=== PATIENT | female | born 1985 | race Caucasian/White ===

== ENCOUNTER 2017-07-29 09:06 | Inpatient (IN) ==
[2017-07-29] MEDS ORDERED: METHYLERGONOVINE 0.2 MG/ML INJECTION IM PRN (09:39)
[2017-07-29] MEDS ORDERED: CALCIUM CARBONATE Chewable 500mg TABLET PO PRN (09:39)
[2017-07-29] MEDS ORDERED: CARBOPROST 250 MCG/ML INJECTION IM PRN (09:39)
[2017-07-29] MEDS ORDERED: MAG-AL + SIM ORAL LIQUID 30ml PO PRN (09:39)
[2017-07-29] MEDS ORDERED: LIDOCAINE 1% (10mg/ml) 2mL INJ PF SDV ID PRN (09:39)
[2017-07-29] MEDS ORDERED: ACETAMINOPHEN 500 MG TABLET PO PRN (09:39)
--- OUTSIDE RECORDS SUMMARY | 2017-07-29 10:00 | External Medical Summary | Continuity of Care Document ---
:1985 Author Organization [facility] Address [address] [place], [place] [address] Phone Support Name Relationship Address Phone Sg Alva spouse [address] [phone] [place] [address] Allergies, Adverse Reactions, Alerts Substance Reaction Severity Status No Known Drug Allergies Unknown Active Medications Medication Instructions Dosage Effective Dates (start - Status Comments stop) ORAL TABLET - Active Problems Condition Effective Dates (start - stop) Clinical Status Follow-Up, Routine - Encounter for suprvsn of normal - , second trimester 23 weeks gestation of - 19 weeks gestation of - Encounter for suprvsn of normal - , second trimester Matern care for oth or susp poor fetl - grth, 2nd tri, unsp Encounter for suprvsn of normal - , second trimester 14 weeks gestation of - Matern care for oth or susp poor fetl - grth, 2nd tri, unsp 19 weeks gestation of - Small for Gestational Age Routine Care, Multigravida 40 weeks gestation of - Pap Smear Screening, Cervix - Encounter for suprvsn of normal - , first trimester 10 weeks gestation of - Active Procedures Procedure Date OB Visit No Charge Results Test Name Date and Time Measure Units Reference Range Abnormal Flag Comments Unknown Advance Directives Directive Yes / No Effective Date File Name Unknown Encounters Encounter Practice Location Reason(s) Diagnoses Date Provider Care Team Description For Visit Members Delonte Sanchez Encounter for Cristian-0 Urena Referring In Womens suprvsn of normal 6-201 Nedra. Provider: Emily KEMP, , second 7 700 Nedra Urena PO [address] [email or web address] weeks Medical , 700 1522, gestation of [facility], , [facility] Dr ZHONG, 120, [place] 120, [id number], Daniel Sanchez, [place], [place], tel:[phone]. , [place]. tel: tel: [phone] Delonte Sanchez 19 weeks David-1 Urena Referring In Womens gestation of 2-201 Nedra. Provider: Emily KEMP, pregnancyEncounte 7 700 Nedra Urena PO Box r for suprvsn of [facility], 700 1522, normal , [facility], second trimester , [facility] Dr ZHONG, 120, [place] 120, , Daniel Sanchez, [place], [place], tel:[phone]. , [place]. tel: tel: [phone] Delonte Sanchez Matern care for David- Urena Referring In Womens Ultrasound oth or susp poor 2-201 Nedra. Provider: arely Bain, 2nd 7 700 Nedra Urena PO Box tri, [email or web address] weeks Medical , 700 1522, gestation of [facility], , [facility] Dr ZHONG, 120, [place] 120, , Daniel [place], [place], tel: [phone]. , [place]. tel: tel: [phone] Delonte Sanchez Matern care for January-0 Urena Referring In Womens oth or susp poor 2-201 Nedra. Provider: arely Bain, 2nd 7 700 Nedra Urena PO Box tri, Medical , 700 1522, unspEncounter for [facility], suprvsn of normal , [facility] Dr ZHONG, , second 120, [place] 120, [id number], [email or web address] weeks Daniel [place], gestation of [place] ZHONG, tel:[phone]. , [place]. tel: tel: [phone] Delonte Sanchez Pap Smear Apr-0 Urena Referring In Womens Screening, 4- Nedra. Provider: Emily KEMP CervixEncneishaer 7 700 Nedra Urena PO Box for suprvsn of Medical K, 700 1522, normal , [facility] Vincent, first [email or web address] , [facility] Dr ZHONG, weeks gestation 120, T[place] 120, , of Daniel Sanchez, [place], [place], tel: [phone]. , [place]. tel: tel: [phone] Delonte Sanchez Jul- Urena Referring In Womens Follow-Up, 3- Nedra. Provider: Emily KEMP, Routine 5 700 Nedra Urena PO Box Medical K, 700 1522, [place] [address], [facility] Dr ZHONG, 120, [place] 120, , Daniel [place], [place], tel: [phone]. , [place]. tel: tel: [phone] Delonte Sanchez Small for Oct-0 Urena In Womens Gestational 1-201 Nedra. Emily [facility]P, [facility], 5 700 PO Box [email or web address] Medical 1522, weeks gestation [facility], of Tanner Manzo, 120, [id number], [place], [place] ZHONG, tel: [phone] , [place]. tel: [phone] Delonte Sanchez Apr- Urena Referring In Womens 4-201 Nedra. Provider: Emily KEMP, 5 700 Nedra Urena PO Box Medical K, 700 1522, [place] [address], [facility] Dr ZHONG, 120, [place] 120, [id number], [place], [place] ZHONG, tel: [phone]. , [place]. tel: tel: [phone] Delonte Sanchez Fe- Urena In Womens 8-201 Nedra. Emily KEMP, 5 700 PO Box Medical 1522, [place] [address] Vincent, [place], 120, [id number], [place], [place], tel:[phone] , [place]. tel: [phone] Family History Family Member Diagnosis Age At Onset No family history of Uterine Cancer No family history of Pulmonary Embolism No family history of Ovarian Cancer No family history of Venous Thrombosis No family history of Colon Cancer No family history of Breast Cancer Mother Melanoma Immunizations Vaccine Date Status Comments Tdap completed Source: New Immunization Record Payers Payer name Insurance type Covered constitution party ID Authorization(s) [facility] - [id number] Medicaid [facility] [id number] [facility] [id number] Social History Type Description Quantity Date Captured Alcohol Use Details No Caffeine Use Details Unknown Tobacco Use Status Unknown Smoking Status Never smoker Vital Signs Date / Height Weight BMI Pulse Blood Temperature Respiratory Body Head BMI Time: Rate Pressure Rate Surface Circumference percentile Area 127.90 21.2 / lbs 8 mm[Hg] 10:24 kg/m AM eter (2) 5 10:18 kg/m AM eter (2) Chief Complaint And Reason For Visit Unknown Chief Complaint And Reason For Visit Reason For Referral Reason For Referral Unknown Plan Of Care Date Type Action Status Appointment Aliyah Alva BOOKED Future Order: Radiology Order Complete OB Ultrasound > 14 Ordered Weeks ([id number]) Date Type Problem Goal Intervention Status Start Date Unknown. History Of Present Illness Encounter Date Complaint History Of Present Illness This patient has no known history of present illness Functional Status Encounter Date Functional Assessment Cognitive Assessment Unknown Medications Administered Medication Instructions Dosage Effective Dates (start - stop) Status Comments Drug Treatment Unknown Instructions Date Instruction Additional Information HIV and other routine tests risk factors identified by history anticipated course of care nutrition and weight gain counseling, special diet toxoplasmosis precautions (cats / raw meat) exercise indications for ultrasound environmental / work hazards travel tobacco (ask, advise, assess, assist and arrange) alcohol illicit / recreational drugs use of any medications (including supplements, vitamins, herbs, OTC drugs) smoking counseling domestic violence seat belt use genetic testing new ob handbook Zika virus assessment & precautions
--- OUTSIDE RECORDS SUMMARY | 2017-07-29 10:00 | External Medical Summary | Summary of Care ---
:1985 Author Name Mary Jane Palm M.D. Address [address], [place] [address] Care Team Providers Name Role Phone Mary Jane Palm M.D. Unavailable Unavailable Outside, Physician Primary Care Provider Unavailable Unavailable Unavailable Unavailable Functional Status Functional Status Health Issues Name Dates Details Functional status health issues are not documented Status: Cognitive Status Health Issues Name Dates Details Cognitive status health issues are not documented Status: Problems Name Dates Details Sinusitis (473.9, J32.9) Status: Active Medications Name Dates Details Amoxicillin 500 MG Oral Capsule TAKE 1 CAPSULE 3 TIMES DAILY UNTIL GONE. Quantity: 30 Refills: 0 Shoaib Palm M.D. Started 26-Dec-2014 Ended 05-Jan-2015 ActiveFluticasone Propionate 50 MCG/ACT Nasal Suspension USE 1 SPRAY IN EACH NOSTRIL TWICE DAILY. Quantity: 1 Refills: 0 Shoaib Palm M.D. Started 26-Dec-2014 Ended 05-Jan-2015 Iplfeq31 GM Bottle Allergies and Adverse Reactions Name Dates Details No Known Drug Allergies Status: Active Procedures Procedure Dates Details Procedures not documented Immunization Name Dates Details Immunizations not documented Social History Smoking StatusUnknown if ever smoked Vital Signs Date Test Result Details No Known Vitals to report Results Date Description Value Details Results not documented Plan of Care Planned Observations Name Dates Details Planned Goals not documented Goal Instructions Instructions not documented Encounters Appointment; Shoaib Palm On 26-Dec-2014 Encounter Diagnosis: Problem not documented 10:00
--- OUTSIDE RECORDS SUMMARY | 2017-07-29 10:00 | External Medical Summary | Continuity of Care Document ---
:1987 Author Organization [email or web address] Address [address] [place], [place] [address] Phone Support Name Relationship Address Phone Sg Alva spouse [address] [phone] [place] [address] Allergies, Adverse Reactions, Alerts Substance Reaction Severity Status No Known Drug Allergies Unknown Active Medications Medication Instructions Dosage Effective Dates (start - Status Comments stop) ORAL TABLET - Active Problems Condition Effective Dates (start - stop) Clinical Status Follow-Up, Routine - Encounter for suprvsn of normal - , third trimester 30 weeks gestation of - Encounter for suprvsn of normal - , second trimester 19 weeks gestation of - Matern care for oth or susp poor fetl - grth, 2nd tri, unsp 14 weeks gestation of - Encounter for suprvsn of normal - , second trimester Matern care for oth or susp poor fetl - grth, 2nd tri, unsp 19 weeks gestation of - Small for Gestational Age Routine Care, Multigravida 40 weeks gestation of - Pap Smear Screening, Cervix - Encounter for suprvsn of normal - , first trimester 10 weeks gestation of - Encounter for suprvsn of normal - , second trimester 23 weeks gestation of - Encounter for suprvsn of normal - , second trimester 27 weeks gestation of - Encounter for suprvsn of normal - , third trimester 32 weeks gestation of - Active Procedures Procedure Date OB Visit No Charge Results Test Name Date and Time Measure Units Reference Range Abnormal Flag Comments Unknown Advance Directives Directive Yes / No Effective Date File Name Unknown Encounters Encounter Practice Location Reason(s) Diagnoses Date Provider Care Team Description For Visit Members Delonte Sanchez Encounter for May- Urena Referring In Womens suprvsn of normal 8-201 Nedra. Provider: Emily KEMP, , third 7 700 Nedra Urena PO Box [email or web address] weeks Medical , 700 1522, gestation of [facility], , [facility] Dr ZHONG, 120, [place] 120, [id number], Daniel [place], [place] ZHONG, tel: [phone]. , [place]. tel: tel: [phone] Delonte Sanchez Encounter for Urena Referring In Womens suprvsn of normal 4-201 Nedra. Provider: Emily KEMP, , third 7 700 Nedra Urena PO Box [id number] weeks Medical , 700 1522, gestation of [facility], , [facility] Dr ZHONG, 120, [place] 120, [id number], Daniel Sanchez, [place] ZHONG, tel: [phone]. , [place]. tel: tel: [phone] Delonte Sanchez Encounter for Apr- Urena Referring In Womens suprvsn of normal 3-201 Nedra. Provider: Emily KEMP, , second 7 700 Nedra Urena PO Box [email or web address] weeks Medical , 700 1522, gestation of [facility], , [facility] Dr ZHONG, 120, [place] 120, [id number], Daniel [place], [place] ZHONG, tel: [phone]. , [place]. tel: tel: [phone] Delonte Sanchez Encounter for Mar- Urena Referring In Womens suprvsn of normal 6-201 Nedra. Provider: Emily KEMP, , second 7 700 Nedra Urena PO Box [email or web address] weeks Medical , 700 1522, gestation of [facility], , [facility] Dr ZHONG, 120, [place] 120, , Daniel Sanchez, [place] ZHONG, tel: [phone]. , [place]. tel: tel: [phone] Delonte Sanchez Encounter for David-1 Urena Referring In Womens suprvsn of normal 2-201 Nedra. Provider: Health PA, , second 7 700 Nedra Urena PO Box [email or web address] weeks Medical , 700 1522, gestation of [facility], , [facility] Dr ZHONG, 120, [place] 120, , Daniel Sanchez, [place] ZHONG, tel:[phone]. , [place]. tel: tel: [phone] Delonte Sanchez Matern care for David-1 Urena Referring In Womens Ultrasound oth or susp poor 2-201 Nedra. Provider: Health VIRIDIANA, fetl grth, 2nd 7 700 Nedra Urena PO Box tri, [email or web address] weeks Medical , 700 1522, gestation of [facility], , [facility] Dr ZHONG, 120, [place] 120, [id number], Daniel Sanchez, [place] ZHONG, tel: [phone]. , [place]. tel: tel: [phone] Delonte Sanchez Matern care for May-0 Urena Referring In Womens oth or susp poor 2-201 Nedra. Provider: Health PA, fetl grth, 2nd 7 700 Nedra Urena PO Box tri, [email or web address] weeks Medical , 700 1522, gestation of [facility], pregnancyEncbinh Manzo, [facility] Dr ZHONG, r for suprvsn of 120, [place] 120, [id number], normal , Daniel Sanchez, second trimester [place] ZHONG, tel: [phone]. , [place]. tel: tel: [phone] Delonte Sanchez Pap Smear Apr-0 Urena Referring In Womens Screening, 4-201 Nedra. Provider: Emily KEMP, CervixEncounter 7 700 Nedra Urena PO Box for suprvsn of Medical K, 700 1522, normal , [place] Elizabeth Kaur, first [email or web address] Dr, [facility] Dr ZHONG, weeks gestation 120, [place] 120, [id number], of [place], [place], tel: [phone]. , [place]. tel: tel: [phone] Delonte Sanchez Nov- Urena Referring In Womens Follow-Up, 3- Nedra. Provider: Emily KEMP, Routine 5 700 Nedra Urena PO Box Medical K, 700 1522, [place] [address], [facility] Dr ZHONG, 120, [place] 120, , [place], [place], tel:[phone]. , [place]. tel: tel: [phone] Delonte Sanchez Small for Oct-0 Urena In Womens Gestational 1-201 Nedra. Emily [facility]EMP, [facility], 5 700 PO Box [id number] Medical 1522, [facility], of [place] Manzo, 120, , [place], [place], tel: [phone] , [place]. tel: [phone] Delonte Sanchez Apr- Urena Referring In Womens 4-201 Nedra. Provider: Emily KEMP, 5 700 Nedra Urena PO Box Medical K, 700 1522, [place] [address], [facility] Dr ZHONG, 120, [place] 120, [id number], Daniel Sanchez, [place], [place], tel: [phone]. , [place]. tel: tel: [phone] Delonte Sanchez Oct- Urena In Womens 8-201 Nedra. Emily KEMP, 5 700 PO Box Medical 1522, [place] Dr Vincent, [place], 120, [id number], [place], [place], tel: [phone] , [place]. tel: [phone] Family History Family Member Diagnosis Age At Onset No family history of Uterine Cancer No family history of Pulmonary Embolism No family history of Ovarian Cancer No family history of Venous Thrombosis No family history of Colon Cancer No family history of Breast Cancer Mother Melanoma Immunizations Vaccine Date Status Comments Tdap completed Source: New Immunization Record Payers Payer name Insurance type Covered republican ID Authorization(s) [facility] - [id number] Medicaid [facility] [id number] [facility] [id number] Social History Type Description Quantity Date Captured Alcohol Use Details No Caffeine Use Details Unknown Tobacco Use Status Unknown Smoking Status Never smoker Vital Signs Date / Height Weight BMI Pulse Blood Temperature Respiratory Body Head BMI Time: Rate Pressure Rate Surface Circumference percentile Area 138.00 22.9 lbs 6 mm[Hg] 9:09 kg/m AM eter (2) Chief Complaint And Reason For Visit Unknown Chief Complaint And Reason For Visit Reason For Referral Reason For Referral Unknown Plan Of Care Date Type Action Status Appointment Aliyah Alva BOOKED Future Order: Radiology Order Complete OB Ultrasound > 14 Ordered Weeks ([id number]) Date Type Problem Goal Intervention Status Start Date Unknown. History Of Present Illness Encounter Date Complaint History Of Present Illness This patient has no known history of present illness Functional Status Encounter Date Functional Assessment Cognitive Assessment Unknown Medications Administered Medication Instructions Dosage Effective Dates (start - stop) Status Comments Drug Treatment Unknown Instructions Date Instruction Additional Information gestational glucose lab screening HIV and other routine tests risk factors [...]
--- OUTSIDE RECORDS SUMMARY | 2017-07-29 10:01 | External Medical Summary | Continuity of Care Document ---
:1985 Author Organization [facility] Address [address] [place], [place] [address] Phone Support Name Relationship Address Phone Sg Alva spouse [email or web address] [phone] [place] [address] Allergies, Adverse Reactions, Alerts Substance Reaction Severity Status No Known Drug Allergies Unknown Active Medications Medication Instructions Dosage Effective Dates (start - Status Comments stop) ORAL TABLET - Active Problems Condition Effective Dates (start - stop) Clinical Status Follow-Up, Routine - Encounter for suprvsn of normal - , third trimester 32 weeks gestation of - Encounter for suprvsn [...] suprvsn of normal - , third trimester 34 weeks gestation of - Active Procedures Procedure Date OB Visit No Charge Results Test Name Date and Time Measure Units Reference Range Abnormal Flag Comments Unknown Advance Directives Directive Yes / No Effective Date File Name Unknown Encounters Encounter Practice Location Reason(s) Diagnoses Date Provider Care Team Description For Visit Members Delonte Sanchez Encounter for May- Urena Referring In Womens suprvsn of 2-201 Nedra. Provider: Health VIRIDIANA, normal 7 700 Nedra Urena PO Box , third Medical K, 700 1522, [email or web address] [facility], weeks gestation , [facility] Dr ZHONG, of 120, [place] 120, [id number], Daniel [place], [place] ZHONG, tel:[phone]. , [place]. tel: tel: [phone] Delonte Sanchez Encounter for Sep-0 Urena Referring In Womens suprvsn of 8-201 Nedra. Provider: Health VIRIDIANA, normal 7 700 Nedra Urena PO Box , third Medical K, 700 1522, [email or web address] [facility] Vincent, weeks gestation , [facility] Dr ZHONG, of 120, [place] 120, [id number], Daniel [place], [place] ZHONG, tel:[phone]. , [place]. tel: tel: [phone] Delonte Sanchez Encounter for Apr- Urena Referring In Womens suprvsn of 4-201 Nedra. Provider: Health VIRIDIANA, normal 7 700 Nedra Urena PO Box , third Medical K, 700 1522, [email or web address] [facility] [place], weeks gestation , [facility] Dr ZHONG, of 120, [place] 120, [id number], Daniel [place], [place] ZHONG, tel:[phone]. , [place]. tel: tel: [phone] Delonte Sanchez Encounter for Aug-0 Urena Referring In Womens suprvsn of 3-201 Nedra. Provider: Health VIRIDIANA, normal 7 700 Nedra Urena PO Box , Medical K, 700 1522, [facility], [email or web address] , [facility] Dr ZHONG, weeks gestation 120, [place] 120, , of Daniel [place], [facility], [place], tel:[phone]. , [place]. tel: tel: [phone] Delonte Sanchez Encounter for Cristian-0 Urena Referring In Womens suprvsn of 6-201 Nedra. Provider: Health VIRIDIANA, normal 7 700 Nedra Urena PO Box , Medical K, 700 1522, [facility], [email or web address] , [facility] Dr ZHONG, weeks gestation 120, [place] 120, , of Daniel Sanchez, [facility], [place], tel:[phone]. , [place]. tel: tel: [phone] Delonte Sanchez Encounter for David-1 Urena Referring In Womens [facility] of 2-201 Nedra. Provider: Health VIRIDIANA, normal 7 700 Nedra Urena PO Box , Medical K, 700 1522, [facility], [email or web address] , [facility] Dr ZHONG, weeks gestation 120, [place] 120, , of Daniel [place], [place], [place], tel:[phone]. , [place]. tel: tel: [phone] Delonte Sanchez Matern care for David-1 Urena Referring In Womens Ultrasound oth or susp poor 2-201 Nedra. Provider: Health VIRIDIANA, fetl grth, 2nd 7 700 Nedra Urena PO Box tri, [email or web address] Medical K, 700 1522, weeks gestation [facility] Vincent, of , [facility] Dr ZHONG, 120, [place] 120, , Daniel [place], [place], [place], tel:+ [phone]. , [place]. tel: tel: [phone] Delonte Sanchez Matern care for May-0 Urena Referring In Womens oth or susp poor 2-201 Nedra. Provider: Emily KEMP, fetl grchadd, 2nd 7 700 Nedra Urena PO Box [facility], [facility], 700 1522, unspEncounter [facility], for suprvsn of Dr, [facility] Dr ZHONG, normal 120, [place] 120, [id number], , Daniel [place], second [place], [place], tel: [email or web address] [phone]. weeks gestation , [place]. tel: of tel: [phone] Delonte Sanchez Pap Smear Apr-0 Urena Referring In Womens Screening, - Nedra. Provider: Emily KEMP, CervixEncounter 7 700 Nedra Urena PO Box for suprvsn of [facility], 700 1522, normal [facility], , first , [facility] Dr ZHONG, [email or web address] 120, [place] 120, , weeks gestation Daniel [place], [place] of [place], [place], tel: [phone]. , [place]. tel: tel: [phone] Delonte Sanchez Nov- Urena Referring In Womens Follow-Up, 3- Nedra. Provider: Emily KEMP, Routine 5 700 Nedra Urena PO Box [facility], 700 1522, [facility] Vincent, , [facility] Dr ZHONG, 120, [place] 120, , Daniel [place], [place], [place], tel: [phone]. , [place]. tel: tel: [phone] Delonte Sanchez Small for Jun-0 Urena In Womens Gestational 1-201 Nedra. Emily KEMP, AgeRoutine Care, 5 700 PO Box [id number] Medical 1522, weeks gestation [facility], of Tanner Manzo, 120, [id number], Daniel, [place], tel: [phone] , [place]. tel: [phone] Delonte Sanchez Aug- Urena Referring In Womens 4-201 Nedra. Provider: Health VIRIDIANA, 5 700 Nedra Urena PO Box Medical K, 700 1522, [place] [address], [facility] [place], 120, [place] 120, [id number], [place], [place], tel: [phone]. , . tel: tel: [phone] Delonte Sanchez Oct- Urena In Womens 8-201 Nedra. [facility] VIRIDIANA, 5 700 PO Box Medical 1522, [place] Dr Vincent, [facility] [place], 120, [id number], [facility] [place], tel: [phone] , [place]. tel: [phone] Family History Family Member Diagnosis Age At Onset No family history of Uterine Cancer No family history of Pulmonary Embolism No family history of Ovarian Cancer No family history of Venous Thrombosis No family history of Colon Cancer No family history of Breast Cancer Mother Melanoma Immunizations Vaccine Date Status Comments Tdap completed Source: New Immunization Record Payers Payer name Insurance type Covered green party ID Authorization(s) [facility] - [id number] Medicaid [facility] [id number] [facility] [id number] Social History Type Description Quantity Date Captured Alcohol Use Details No Caffeine Use Details Unknown Tobacco Use Status Unknown Smoking Status Never smoker Vital Signs Date / Height Weight BMI Pulse Blood Temperature Respiratory Body Head BMI Time: Rate Pressure Rate Surface Circumference percentile Area 141.00 23.4 / lbs 6 mm[Hg] 9:01 kg/m AM eter (2) Chief Complaint And Reason For Visit Unknown Chief Complaint And Reason For Visit Reason For Referral Reason For Referral Unknown Plan Of Care Date Type Action Status Appointment Aliyah Alva BOOKED Future Order: Radiology Order Complete OB Ultrasound > 14 Ordered Weeks ([id number]) Date Type Problem Goal Intervention Status Start [...]
--- OUTSIDE RECORDS SUMMARY | 2017-07-29 10:01 | External Medical Summary | Continuity of Care Document ---
:1985 Author Organization [facility] Address [address] [place], [place] [address] Phone Support Name Relationship Address Phone Sg Alva spouse [address] [phone] [place] [address] Allergies, Adverse Reactions, Alerts Substance Reaction Severity [...] third trimester 30 weeks gestation of - Active Procedures Procedure Date Unknown Results Test Name Date and Time Measure Units Reference Range Abnormal Flag Comments Unknown Advance Directives Directive Yes / No Effective Date File Name Unknown Encounters Encounter Practice Location Reason(s) Diagnoses Date Provider Care Team Description For Visit Members Delonte Sanchez Encounter for Apr-2 Urena Referring In Womens suprvsn of 4-201 Nedra. Provider: Emily KEMP, normal 7 700 Nedra Urena PO Box , third Medical K, 700 1522, [email or web address] Center [facility] Ione, weeks gestation , [facility] [address] ZHONG, of 120, T[place] 120, [id number], Daniel Sanchez, [facility], [place], tel:[phone]. , [place]. tel: tel: [phone] Delonte Sanchez Aug-0 Urena In Womens 4-201 Nedra. Emily KEMP, 7 700 PO Box Medical 15[address], [place] [address] Vincent, [facility] [place], 120, , [facility] [place], tel: [phone] , [place]. tel: [phone] Delonte Sanchez Encounter for Apr-0 Urena Referring [facility]201 Nedra. Provider: Emily KEMP, normal 7 700 Nedra Urena PO Box , Medical K, 700 1522, second [facility], [email or web address] , [facility] [address] ZHONG, weeks gestation 120, [place] 120, , of Daniel Sanchez, [place], [place], tel: [phone]. , [place]. tel: tel: [phone] Delonte Sanchez Encounter for Mar-0 Urena Referring In Womens suprvsn of 6-201 Nedra. Provider: Health VIRIDIANA, normal 7 700 Nedra Urena PO Box , Medical K, 700 1522, [facility] Ione, [email or web address] , [facility] [address] ZHONG, weeks gestation 120, T[place] 120, , of Daniel Sanchez, [place], [place], tel:+ [phone]. , [place]. tel: tel: [phone] Delonte Sanchez Encounter for David-1 Urena Referring In Womens suprvsn of 2-201 Nedra. Provider: Emily KEMP, normal 7 700 Nedra Urena PO Box , Medical , 152, [facility], [email or web address] , [facility] [address] ZHONG, weeks gestation 120, T[place] 120, , of Daniel Sanchez, [place], [place], tel: [phone]. , [place]. tel: tel: [phone] Delonte Sanchez Matern care for David-1 Urena Referring In Womens Ultrasound oth or susp poor 2-201 Nedra. Provider: Emily KEMP fetcyndi saeed, 2nd 7 700 Nedra Urena PO Box tri, [email or web address] Medical , 1522, weeks gestation [facility], of , [facility] [address] ZHONG, 120, [place] 120, , Daniel Sanchez, [place] ZHONG, tel: [phone]. , [place]. tel: tel: [phone] Delonte Sanchez Matern care for May-0 Urena Referring In Womens oth or susp poor - Nedra. Provider: arely Bain, 2nd 7 700 Nedra Urena PO Box tri, Medical , 152, unspEncounter [facility], for suprvsn of Dr, [facility] Dr ZHONG, normal 120, [place] 120, , , Daniel Sanchez, [facility] [place] ZHONG, tel: [email or web address] [phone]. weeks gestation , [place]. tel: of tel: [phone] Delonte Sanchez Pap Smear Apr-0 Urena Referring In Womens Screening, 4- Nedra. Provider: Emily KEMP CervixEncounter 7 700 Nedra Urena PO Box for suprvsn of Medical , 700 1522, normal [facility], , first , [facility] [address] ZHONG, [email or web address] 120, T[place] 120, , weeks gestation Daniel Sanchez, [place] of [place] ZHONG, tel: [phone]. , [place]. tel: tel: [phone] Delonte Sanchez Nov- Urena Referring In Womens Follow-Up, 3-201 Nedra. Provider: Emily KEMP, Routine 5 700 Nedra Urena PO Box Medical K, 700 1522, [place] [address], [facility] [place], 120, [place] 120, [id number], [place], [place], [place], tel: [phone]. , [place]. tel: tel: [phone] Delonte Sanchez Small for Oct-0 Urena In Womens Gestational 1-201 Nedra. Emily KEMP, [facility], 5 700 PO Box [email or web address] Medical 1522, [facility], of , [place] ZHONG, 120, [id number], [place], [place], tel: [phone] , [place]. tel: [phone] Delonte Sanchez Apr- Urena Referring In Womens 4-201 Nedra. Provider: Emily KEMP, 5 700 Nedra Urena PO Box Medical K, 700 1522, [place] [address], [facility] Dr ZHONG, 120, T[place] 120, [id number], Daniel Sanchez, [place], [place], tel: [phone]. , [place]. tel: tel: [phone] Delonte Sanchez Fe- Urena In Womens 8-201 Nedra. Emily KEMP, 5 700 PO Box Medical 1522, [place] [address] Vincent, [facility] [place], 120, [id number], [place], [place], tel: [phone] , [place]. tel: [phone] Family History Family Member Diagnosis Age At Onset No family history of Uterine Cancer No family history of Pulmonary Embolism No family history of Ovarian Cancer No family history of Venous Thrombosis No family history of Colon Cancer No family history of Breast Cancer Mother Melanoma Immunizations Vaccine Date Status Comments Tdap completed Source: New Immunization Record Payers Payer name Insurance type Covered libertarian ID Authorization(s) [employer] [facility] - [id number] Medicaid [facility] [id number] [facility] [id number] Social History Type Description Quantity Date Captured Unknown Vital Signs Date / Height Weight BMI Pulse Blood Temperature Respiratory Body Head BMI Time: Rate Pressure Rate Surface Circumference percentile Area Unknown Chief Complaint And Reason For Visit Unknown Chief Complaint And Reason For Visit Reason For Referral Reason For Referral Unknown Plan Of Care Date Type Action Status Appointment Aliyah Alva BOOKED Future Order: Radiology Order Complete OB Ultrasound > 14 Ordered Weeks ([id number]) Date Type Problem Goal Intervention Status Start [...]
--- OUTSIDE RECORDS SUMMARY | 2017-07-29 10:08 | External Medical Summary | Continuity of Care Document ---
:1985 Author Organization [facility] Address [address] [place], [place] [id number] Phone Support Name Relationship Address Phone Sg Alva spouse [address] [phone] [place] [address] Allergies, Adverse Reactions, Alerts Substance Reaction Severity Status No Known Drug Allergies Unknown Active Medications Medication Instructions Dosage Effective Dates (start - Status Comments stop) ORAL TABLET - Active Problems Condition Effective Dates (start - stop) Clinical Status Follow-Up, Routine - Encounter for suprvsn of normal - , third trimester 34 weeks gestation of - Encounter for suprvsn [...] suprvsn of normal - , third trimester 36 weeks gestation of - Encounter for suprvsn [...] For Visit Members Delonte Sanchez Encounter for Oct-0 Urena Referring In Womens suprvsn of 9-201 Nedra. Provider: Emily KEMP, normal 7 700 Nedra Urena PO Box , third Medical K, 700 1522, [email or web address] [facility], weeks gestation , [facility] Dr ZHONG, of 120, [place] 120, , Daniel Sanchez, [place], [place], tel: [phone]. , [place]. tel: tel: [phone] Delonte Sanchez Encounter for Sep-2 Urena Referring In Womens suprvsn of 2-201 Nedra. Provider: Emily KEMP, normal 7 700 Nedra Urena PO Box , third Medical K, 700 1522, [email or web address] [facility], weeks gestation , [facility] Dr ZHONG, of 120, [place] 120, , Daniel Sanchez, [place], [place], tel: [phone]. , [place]. tel: tel: [phone] Delonte Sanchez Encounter for Sep-0 Urena Referring In Womens suprvsn of 8-201 Nedra. Provider: Emily KEMP, normal 7 700 Nedra Urena PO Box , third Medical K, 700 1522, [email or web address] [facility], weeks gestation , [facility] Dr ZHONG, of 120, T[place] 120, [id number], Daniel Sanchez, [place], [place], tel: [phone]. , [place]. tel: tel: [phone] Delonte Sanchez Encounter for Aug-2 Urena Referring In Womens suprvsn of 4-201 Nedra. Provider: Emily KEMP, normal 7 700 Nedra Urena PO Box , third Medical K, 700 1522, [email or web address] [facility], weeks gestation Dr, [facility] Dr ZHONG, of 120, [place] 120, [id number], Daniel Sanchez, [place], [place], tel: [phone]. , [place]. tel: tel: [phone] Delonte Sanchez Encounter for Aug-0 Urena Referring In Womens suprvsn of 3-201 Nedra. Provider: Emily KEMP, normal 7 700 Nedra Urena PO Box , Medical K, 700 1522, [facility], [email or web address] , [facility] Dr ZHONG, weeks gestation 120, T[place] 120, [id number], of Daniel Sanchez, [place], [place], tel: [phone]. , [place]. tel: tel: [phone] Delonte Sanchez Encounter for Cristian-0 Urena Referring In Womens suprvsn of 6-201 Nedra. Provider: Emily KEMP, normal 7 700 Nedra Urena PO Box , Medical K, 700 1522, [facility], [email or web address] , [facility] Dr ZHONG, weeks gestation 120, [place] 120, [id number], of Daniel Sanchez, [place], [place], tel: [phone]. , [place]. tel: tel: [phone] Delonte Sanchez Encounter for David-1 Urena Referring In Womens suprvsn of 2-201 Nedra. Provider: Emily KEMP, normal 7 700 Nedra Urena PO Box , Medical K, 700 1522, [facility], [email or web address] , [facility] Dr ZHONG, weeks gestation 120, [place] 120, [id number], of Daniel Sanchez, [place], [place], tel: [phone]. , [place]. tel: tel: [phone] Delonte Sanchez Matern care for David-1 Urena Referring In Womens Ultrasound oth or susp poor 2-201 Nedra. Provider: arely Bain, 2nd 7 700 Nedra Urena PO Box tri, [email or web address] Medical K, 700 1522, weeks gestation [facility], of , [facility] Dr ZHONG, 120, [place] 120, [id number], Daniel Sanchez, [place] ZHONG, tel: [phone]. , [place]. tel: tel: [phone] Delonte Sanchez Matern care for May-0 Urena Referring In Womens oth or susp poor 2-201 Nedra. Provider: arely Bain, 2nd 7 700 Ndera Urena PO Box tri, Medical , 700 1522, [email or web address] [facility], for suprvsn of Dr, [facility] Dr ZHONG, normal 120, T[place] 120, , , Daniel Sanchez, second [place] ZHONG, tel: [id number] [phone]. weeks gestation , [place]. tel: of tel: [phone] Delonte Sanchez Pap Smear Apr-0 Urena Referring In Womens Screening, 4-201 Nedra. Provider: Emily KEPM CervixEncounter 7 700 Nedra Urena PO Box for suprvsn of Medical , 700 1522, normal [facility], , first , [facility] Dr ZHONG, [email or web address] 120, T[place] 120, [id number], weeks gestation Daniel Sanchez, [place] of [place] ZHONG, tel: [phone]. , [place]. tel: tel: [phone] Delonte Sanchez Nov- Urena Referring In Womens Follow-Up, 3-201 Nedra. Provider: Emily KEMP, Routine 5 700 Nedra Urena PO Box Medical , 700 1522, [facility] Dr Vincent, [facility] Dr ZHONG, 120, [place] 120, , [place], [place], [place], tel: [phone]. , [place]. tel: tel: [phone] Delonte Hendricks for Jun- Urena In Womens Gestational 1-201 Nedra. Health [facility], [facility], 5 700 PO Box [email or web address] Medical 1522, weeks gestation [place], of , [place], 120, [id number], [place], [place], tel: [phone] , [place]. tel: [phone] Delonte Sanchez Urena Referring In Womens 4-201 Nedra. Provider: Health VIRIDIANA, 5 700 Nedra Urena PO Box Medical K, 700 1522, [place] [address], [facility] [place], 120, [place] 120, [id number], Daniel Sanchez, [place], [place], tel: [phone]. , [place]. tel: tel: [phone] Delonte Sanchez Oct- Urena In Womens 8-201 Nedra. Emily KEMP, 5 700 PO Box Medical 1522, [place] [address] Vincent, [place], 120, [id number], [facility] [place], tel: [phone] , [place]. tel: [phone] Family History Family Member Diagnosis Age At Onset No family history of Uterine Cancer No family history of Pulmonary Embolism No family history of Ovarian Cancer No family history of Venous Thrombosis No family history of Colon Cancer No family history of Breast Cancer Mother Melanoma Immunizations Vaccine Date Status Comments Tdap completed Source: New Immunization Record Payers Payer name Insurance type Covered alliance party ID Authorization(s) [facility] - [id number] Medicaid [facility] [id number] [facility] [id number] Social History Type Description Quantity Date Captured Alcohol Use Details No Caffeine Use Details Unknown Tobacco Use Status Unknown Smoking Status Never smoker Vital Signs Date / Height Weight BMI Pulse Blood Temperature Respiratory Body Head BMI Time: Rate Pressure Rate Surface Circumference percentile Area 143.60 23.8 106/71 lbs 9 mm[Hg] 9:59 kg/m AM eter (2) 6 9:58 kg/m AM eter (2) Chief Complaint And Reason For Visit Unknown Chief Complaint And Reason For Visit Reason For Referral Reason For Referral Unknown Plan Of Care Date Type Action Status Appointment Aliyah Alva BOOKED Future Order: Radiology Order Complete OB Ultrasound > 14 Ordered Weeks ([id number]) Date Type Problem Goal Intervention Status Start [...]
--- OUTSIDE RECORDS SUMMARY | 2017-07-29 10:08 | External Medical Summary | Continuity of Care Document ---
:1985 Author Organization [facility] Address [address] [place], [place] [address] Phone Support Name Relationship Address Phone Sg Alva spouse [address] [phone] [place] [address] Allergies, Adverse Reactions, Alerts Substance Reaction Severity [...] Measure Units Reference Range Abnormal Flag Comments Panel Description: Glucose [Mass/volume] in Serum or Plasma --1 hour post 50 g glucose PO GLUCOSE, GESTATIONAL 52 mg/dL <140 L Test performed at [facility] SCREEN (50G)-140 11:25:00 DIAGNOSTICS [id number] [place] [address]Hyryxxrn: DURAN TURK DO,MPH Panel Description: HEMOGLOBIN + HEMATOCRIT HEMOGLOBIN 11:25:00 11.7 g/dL 11.7-15.5 N HEMATOCRIT 11:25:00 34.5 % 35.0-45.0 L Test performed at [facility] [id number] [place] [address]Mecuncfm: DURAN TURK DO,MPH Advance Directives Directive Yes / No Effective Date File Name Unknown Encounters Encounter Practice Location Reason(s) Diagnoses Date Provider Care Team Description For Visit Members Delonte Sanchez Encounter for Urena [facility] of 4-201 Nedra. Provider: Health PA, normal 7 700 Nedra Urena PO Box , third Medical K, 700 1522, [email or web address] Center [facility], weeks gestation , [facility] Dr ZHONG, of 120, [place] 120, [id number], Daniel Sanchez, [place] ZHONG, tel:[phone]. , [place]. tel: tel: [phone] Delonte Sanchez Encounter for Urena Referring In [facility] of 3-201 Nedra. Provider: Health PA, normal 7 700 Nedra Urena PO Box , Medical K, 700 1522, second [facility], [email or web address] , [facility] Dr ZHONG, weeks gestation 120, [place] 120, [id number], of Daniel Sanchez, [place], [place], tel: [phone]. , [place]. tel: tel: [phone] Delonte Sanchez Encounter for Urena Referring In Womens suprvsn of 6-201 Nedra. Provider: Health VIRIDIANA, normal 7 700 Nedra Urena PO Box , Medical K, 700 1522, [facility], [email or web address] , [facility] Dr ZHONG, weeks gestation 120, [place] 120, , of Daniel Sanchez, [place], [place], tel:+ [phone]. , [place]. tel: tel: [phone] Delonte Sanchez Encounter for David-1 Urena Referring In Womens suprvsn of Nedra. Provider: Health VIRIDIANA, normal 7 700 Nedra Urena PO Box , Medical K, 700 1522, [facility], , [facility] Dr ZHONG, weeks gestation 120, T[place] 120, , of Daniel Sanchez, [place], [place], tel:[phone]. , [place]. tel: tel: [phone] Delonte Sanchez Matern care for David-1 Urena Referring In Womens Ultrasound oth or susp poor - Nedra. Provider: Health VIRIDIANA, fetl grth, 2nd 7 700 Nedra Urena PO Box tri, [email or web address] Medical K, 700 1522, weeks gestation [facility], of Dr, [facility] Dr ZHONG, 120, [place] 120, , Daniel Sanchez, [place], [place], tel: [phone]. , [place]. tel: tel: [phone] Delonte Sanchez Matern care for May-0 Urena Referring In Womens oth or susp poor - Nedra. Provider: Health VIRIDIANA, fetl grth, 2nd 7 700 Nedra Urena PO Box tri, Medical K, 700 1522, unspEncounter [facility], for suprvsn of Dr, [facility] Dr ZHONG, normal 120, [place] 120, , , Daniel Sanchez, [place] second [place], [place], tel: [email or web address] [phone]. weeks gestation , [place]. tel: of tel: [phone] Delonte Sanchez Pap Smear Apr-0 Urena Referring In Womens Screening, 4-201 Nedra. Provider: Emily KEMP CervixEncounter 7 700 Nedra Urena PO Box for suprvsn of Medical K, 700 1522, normal [facility], , first , [facility] Dr ZHONG, [email or web address] 120, [place] 120, [id number], weeks gestation Daniel Sanchez, of [place], [place], tel: [phone]. , [place]. tel: tel: [phone] Delonte Sanchez Nov- Urena Referring In Womens Follow-Up, 3-201 Nedra. Provider: Emily KEMP, Routine 5 700 Nedra Urena PO Box Medical K, 700 1522, [place] [address], [facility] Dr ZHONG, 120, [place] 120, , Daniel Sanchez, [place], [place], tel: [phone]. , [place]. tel: tel: [phone] Delonte Sanchez Small for Oct-0 Urena In Womens Gestational 1-201 Nedra. Emily KEMP, [facility] Care, 5 700 PO Box [id number] Medical 1522, weeks gestation [facility], of [place] Manzo, 120, , [place], [place], tel: [phone] , [place]. tel: [phone] Delonte Sanchez Aug- Urena Referring In Womens 4-201 Nedra. Provider: Emily KEMP, 5 700 Nedra Urena PO Box Medical K, 700 1522, [address], [facility] Dr ZHONG, 120, [place] 120, [id number], Daniel [place], [place], tel:[phone]. , [place]. tel: tel: [phone] Delonte Sanchez Feb- Urena In Womens 8-201 Nedra. Emily KEMP, 5 700 PO Box Medical 1522, [address] Vincent, [place] ZHONG, 120, [id number], [facility] [place], tel:[phone] , . tel:[phone] Family History Family Member Diagnosis Age At [...] Insurance type Covered alliance party ID Authorization(s) [facility] - [id number] Medicaid [facility] [id number] [facility] [id number] Social History Type Description Quantity Date Captured Alcohol Use Details No Caffeine Use Details Unknown Tobacco Use Status Unknown Smoking Status Never smoker Vital Signs Date / Height Weight BMI Pulse Blood Temperature Respiratory Body Head BMI Time: Rate Pressure Rate Surface Circumference percentile Area 135.50 22.5 /60 lbs 5 mm[Hg] 10:56 kg/m AM eter (2) 8 10:51 kg/m AM eter (2) Chief Complaint And Reason For Visit Unknown Chief Complaint And Reason For Visit Reason For Referral Reason For Referral Unknown Plan Of Care Date Type Action Status Appointment Aliyah Alva BOOKED Future Order: Radiology Order Complete OB Ultrasound > 14 Ordered Weeks (43715) Date Type Problem Goal Intervention Status Start [...]
--- OUTSIDE RECORDS SUMMARY | 2017-07-29 10:08 | External Medical Summary | Continuity of Care Document ---
:1985 Author Organization [facility] Allergies Active Description Code Type Severity Reaction Onset Reported/ Identified Relationship Clinical to Patient Status Yes No Known 63813 3 N/A N/A Drug 0 Allergies Medications Problems Date Dx Attending Type Code Diagnosis Diagnosed By Coded 05/30/2015 Nedra Urena 641.03 Placenta Previa Without Hemorrhage 05/30/2015 Nedra Urena 656.53 Small For Gestational Age, Antepartum 05/30/2015 Nedra Urena V22.1 Supervision Of , Multigravida 05/30/2015 Nedra Urena V28.6 Lab Screening For Group B Strep 03/10/2017 Nedra Urena O36.5920 Matern care for oth or susp poor fetl grth, 2nd tri, unsp 03/10/2017 Nedra Urena Z3A.19 19 weeks gestation of Procedures Code Description Performed By Performed On OB 05/26/2015 64104 Visit No Charge 05/26/2015 57050 Bandar, pathgnc orgnsm, screen 06/30/2015 98704 Routine obstetric care 03/10/2017 31159 Ultrasnd exam of preg uterus, compl Results Encounters ACCT No. Visit Discharge Status Pt. Type Provider Facility Loc./Unit Complaint Date/Time [id number] 07/07/2017 07/07/2017 [facility] Outpatient Urena, 15:40:00 23:59:59 Nedra Weems [id number] 06/20/2017 06/20/2017 [facility] Outpatient Urena, 09:50:00 23:59:59 Nedra Weems [id number] 06/06/2017 06/06/2017 [facility] Outpatient Urena, 09:00:00 23:59:59 Nedra Weems [id number] 05/22/2017 05/22/2017 [facility] Outpatient Urena, 09:00:00 23:59:59 Nedra Weems [id number] 05/02/2017 05/02/2017 [facility] Outpatient Urena, 08:14:00 23:59:59 Nedra Weems [id number] 05/01/2017 05/01/2017 [facility] Outpatient Urena, 10:35:00 23:59:59 Nedra Weems [id number] 04/03/2017 04/03/2017 [facility] Outpatient Urena, 10:15:00 23:59:59 Nedra Weems [id number] 04/03/2017 04/03/2017 [facility] Outpatient Urena, 10:15:00 23:59:59 Nedra Weems [id number] 03/10/2017 03/10/2017 [facility] Outpatient Urena, 15:40:00 23:59:59 Nedra Weems [id number] 03/10/2017 03/10/2017 [facility] Outpatient Urena, 15:15:00 23:59:59 Nedra Weems [id number] 01/28/2017 01/28/2017 [facility] Outpatient Urena, 11:15:00 23:59:59 Nedra Weems [id number] 12/31/2016 12/31/2016 [facility] Outpatient Urena, 10:00:00 23:59:59 Nedra Weems [id number] 08/11/2015 08/11/2015 [facility] Outpatient Urena, 10:30:00 23:59:59 Nedra Weems [id number] 06/30/2015 06/30/2015 [facility] Outpatient Urena, 16:02:00 23:59:59 Nedra Weems [id number] 06/29/2015 06/29/2015 [facility] Outpatient Urena, 10:00:00 23:59:59 Nedra Weems [id number] 06/27/2015 06/27/2015 [facility] Outpatient Urena, 13:17:00 23:59:59 Nedra Weems [id number] 06/26/2015 06/26/2015 [facility] Outpatient Urena, 08:58:00 23:59:59 Nedra Weems [id number] 06/23/2015 06/23/2015 [facility] Outpatient Urena, 15:30:00 23:59:59 Nedra Weems [id number] 06/15/2015 06/15/2015 [facility] Outpatient Urena, 08:30:00 23:59:59 Nedra Weems [id number] 06/09/2015 06/09/2015 [facility] Outpatient Urena, 15:05:00 23:59:59 Nedra Weems [id number] 06/02/2015 06/02/2015 [facility] Outpatient Urena, 13:30:00 23:59:59 Nedra Weems [id number] 05/26/2015 05/26/2015 [facility] Outpatient Urena, 15:15:00 23:59:59 Nedra Weems [id number] 07/15/2017 Document 10:00:00 Registration
[2017-07-29 10:10] VITALS: BMI 25.0
[2017-07-29] MEDS ORDERED: DiphenhydrAMINE 50 MG/ML INJECTION IVP PRN (10:58)
[2017-07-29] MEDS ORDERED: ONDANSETRON 4 MG/2 ML INJECTION IVP PRN (10:58)
[2017-07-29] MEDS ORDERED: ROPIVACAINE 1% 10MG/ML INJ 200 MG, SUFentanil 50 MCG in NS 100 ML EPI PRN (10:58)
[2017-07-29] MEDS ORDERED: NALOXONE 0.4 MG/ML INJECTION IVP PRN (10:58)
--- NOTE | 2017-07-29 10:58 | Anesthesia Preoperative Report ---
Anesthesia Epidural/Spinal Rec - Date and Time Date: 07/29/17 Preoperative Diagnosis: labor 40 weeks, Procedure: Labor Epidural Plan: Epidural - Vital Signs Vital Signs: Temperature 98.0 F 07/29/17 10:14 Pulse Rate 75 07/29/17 10:14 Respiratory Rate 20 07/29/17 10:14 Blood Pressure 101/71 07/29/17 10:14 NPO since: 0800 /Para: P:2 Heart Rate: 140 - Medictaions & Allergies Inpatient Medications: Current Medications Acetaminophen (Tylenol) 500 - 1,000 mg PO Q4H PRN PRN Reason: Pain Al Hydroxide/Mg Hydroxide (Maalox Plus) 30 ml PO Q3H PRN PRN Reason: Indigestion Calcium Carbonate (Tums) 500 - 1,000 mg PO Q2H PRN PRN Reason: Indigestion Carboprost Tromethamine (Hemabate) 250 mcg IM O PRN PRN Reason: .Downtime Lactated Ringer's (Lactated Ringers) 1,000 mls @ 999 mls/hr IV .Q1H1M PRN Lidocaine HCl (Xylocaine-Mpf 1% Vial) 0.2 mg ID O PRN PRN Reason: IV Start Methylergonovine Maleate (Methergine) 0.2 mg IM O PRN Misoprostol (Cytotec) 800 mcg ID ONCE PRN Allergies/Adverse Reactions: Allergies Allergy/AdvReac Type Severity Reaction Status Date / Time No Known Allergies Allergy Unverified 05/12/15 14:43 - Home Medications Home Medications: Home Medications Medication Instructions Recorded Confirmed Type Docosahexanoic Acid [ Dha] 1 cap PO DAILY #0 cap 05/12/15 History - Surgical History Anesthesia Reactions: None Hx Family Anesthesia Reaction: No History of Motion Sickness: No - Social History Smoking Status: Current every day smoker Second Hand Exposure: No Substance Use Type: does not use Alcohol Intake Frequency: does not drink Hx Chewing Tobacco Use: No - Pertinent Findings Lab Data: CBC and BMP 07/29/17 10:11 - Physical Exam Respiratory Exam: lungs clear, bilateral breath sounds equal Cardiovascular Exam: regular rate and rhythm - Airway Assessment Mallampati Score: I TMD: 3 Fingerbreadths Neck Extension: good Overall Assessment: no airway concerns - ASA ASA Score: 2 - Discussion Discussion: Discussed risks/options/alternatives of anesthesia and questions answered. Patient consents. Nursing pain assessment noted. Anesthesia Discussion: family member Attestation Statement: Prior to the delivery of any anesthetic medication, I examined the patient, developed the plan, obtained the patient's consent and discussed the risk and benefits of the procedure with the patient/guardian.
[2017-07-29] MEDS: LR 1,000 ML IV PRN ×2 (11:30→12:27)
[2017-07-29] MEDS ORDERED: EPHEDRINE 50mg/ml INJECTION IVP ONE ×2 (11:37→12:47)
[2017-07-29] MEDS ORDERED: OXYTOCIN DRIP 30 UNIT/500 ML ML IV SCH (18:32)
[2017-07-29] MEDS ORDERED: HYDROCORTISONE 2.5% CREAM 30gm RECTALLY PRN (18:32)
[2017-07-29] MEDS ORDERED: DiphenhydrAMINE 25 MG CAPSULE PO PRN (18:32)
[2017-07-29] MEDS ORDERED: HYDROCODONE/APAP 5mg/325mg TABLET PO PRN (18:32)
[2017-07-29] MEDS: IBUPROFEN 800 MG TABLET PO PRN (18:33)
[2017-07-29 22:22] VITALS: RESP 16
[2017-07-30] MEDS: IBUPROFEN 800 MG TABLET PO PRN ×2 (07:13→15:43)
[2017-07-30 07:18] VITALS: TEMP 97.5
--- NOTE | 2017-07-30 08:18 | OB/GYN Progress Note ---
OB-PP Progress Note - General PPD1 Maternal Group B Strep: Negative Maternal blood type: A+ Maternal Rubella Status: Immune - Subjective Date: 07/30/17 Lochia: Minimal Pain: controlled Voiding: voiding - Objective Vital Signs: Last Vital Signs Temp 97.5 F 07/30/17 07:10 Pulse 57 L 07/30/17 07:10 Resp 16 07/30/17 07:10 BP 130/68 07/30/17 07:10 Urine Output: good General: alert and oriented Abdomen: fundus firm, non-tender Extremities: non-tender Laboratory: Laboratory Results - last 24 hr 07/29/17 10:11 WBC 9.9 RBC 4.18 Hgb 12.4 Hct 37.5 MCV 89.7 MCH 29.7 MCHC 33.1 RDW Std Deviation 45.7 Plt Count 193 MPV 9.3 L - Assessment Assessment: - Plan Plan: routine care, discharge home, continue PNV
[2017-07-30] MEDS ORDERED: PRENATAL VITAMIN TABLET PO SCH (09:00)
[2017-07-30] MEDS ORDERED: DOCUSATE CALCIUM 240 MG CAPSULE PO SCH (09:00)
--- NOTE | 2017-07-30 09:10 | Labor and Delivery Note ---
DATE OF DELIVERY 07/29/2017 DELIVERY NOTE Aliyah is a 31-year-old, 3, para 2, at 40 weeks gestational age who presented to [facility] with contractions. She was found to be 4 cm dilated , so she was admitted. Her membranes were ruptured artificially returning clear fluids. She received an epidural. She progressed steadily throughout labor. When she was complete we had her start pushing for a while, but baby was OP and not descending well. We had her labor down for a while. Baby was then ROT. During pushing, FHT became tachycardic with variable decels. She also had a small amount of bleeding. She pushed for the better part of an hour and finally had a spontaneous vaginal delivery in the ALMA position of a viable male infant, Apgars 8/9, weight 3480 g, name "Richard." The baby was vigorous at delivery, so he was placed on mom's abdomen and the cord clamping was delayed for more than 2 minutes. The placenta delivered spontaneously. She had no lacerations. Mom and baby tolerated the delivery well. NAVDEEPD
--- NOTE | 2017-07-30 15:54 | Anesthesia Postoperative Note ---
- Date and Time Date: 07/30/17 Time: 14:55 - Status Patient Participated in Evaluation: Patient Participated in Person Vital Signs: Temperature 97.5 F 07/30/17 07:10 Pulse Rate 57 L 07/30/17 07:10 Respiratory Rate 16 07/30/17 07:10 Blood Pressure 130/68 07/30/17 07:10 Respiratory Function: Airway Patent, Regular Respirations Cardiovascular Function: Regular Pulse Mental Status: Alert and Oriented Pain Intensity: 0 Hydration: Taking PO Fluids Complications During Recover: None Apparent - Follow-Up Instructions Instructions: Per Surgeon
[2017-07-30 17:21] VITALS: BP 116/69; PULSE 52; O2SAT 100
== END 2017-07-30 19:25 | disposition home or self-care (01) | DRG 774 ==
LOC: OBOBS 09:06 → MC 09:07
PROVIDERS: ADMIT Obstetrics & Gynecology; ATTEND Obstetrics & Gynecology